=== PATIENT | female | born 1965 | race Caucasian/White ===

== ENCOUNTER 2020-12-27 23:24 | Inpatient (IN) | payer OTHER ==
[2020-12-28 00:17] LABS: Absolute Lymphocytes (CBC) 2.2 K/uL (0.7-4.9); Basophils % 0.6 % (0-1.3); Hematocrit 41.3 % (36.0-45.0); Lymphocytes % 24.6 % (15.3-44.8); MPV 8.5 fL (7.6-11.3); RBC Red Blood Cell Count 4.65 M/uL (3.86-4.86)
[2020-12-28] MEDS ORDERED: ONDANSETRON 4 MG/2 ML VIAL ONE (00:28)
[2020-12-28] MEDS ORDERED: MORPHINE 4 MG/ML SYR ONE ×2 (00:28→03:20)
[2020-12-28 00:58] LABS: ALT/SGPT 31 U/L (12-78); AST/SGOT 15 U/L (15-37); Albumin 4.2 g/dL (3.4-5.0); Alkaline Phosphatase 104 U/L (45-117); BUN Blood Urea Nitrogen 18 mg/dL (7-18); Bicarbonate 26 mmol/L (21-32); Bilirubin Direct 0.1 mg/dL (0-0.2); Bilirubin Total 0.4 mg/dL (0.2-1.0); Glucose Level 191 mg/dL (74-106); Lipase 145 U/L (73-393); Potassium 3.9 mmol/L (3.5-5.1); Protein, Total 7.2 g/dL (6.4-8.2); Sodium Level 141 mmol/L (136-145); Troponin (Emerg Dept Use Only) < 0.02 ng/mL (0.0-0.045)
[2020-12-28] MEDS ORDERED: HYDROMORPHONE HCL 1 MG/ML INJ ONE (01:01)
--- NOTE | 2020-12-28 03:18 | ER ---
Nurse's Notes [facility] Name: Sophia Payne Age: 55 yrs Sex: Female : 1965 Arrival Date: 12/27/2020 Time: 23:27 Bed 15 Private MD: Diagnosis: Other cholelithiasis without obstruction;Nausea with vomiting, unspecified;Upper abdominal pain, unspecified;Intractable pain Presentation: 12/27 23:43 Chief complaint: Patient states: Mid upper abd pain with vomiting starting around 1800. df1 Coronavirus screen: Vaccine status: Patient reports receiving the 1st dose of the Covid vaccine. Client reports previous positive COVID test result. Date of collection: December 2019. Ebola Screen: Patient negative for fever greater than or equal to 101.5 degrees Fahrenheit, and additional compatible Ebola Virus Disease symptoms Patient denies exposure to infectious person. Patient denies travel to an Ebola-affected area in the 21 days before illness onset. Initial Sepsis Screen: Does the patient meet any 2 criteria? No. Patient's initial sepsis screen is negative. Does the patient have a suspected source of infection? No. Patient's initial sepsis screen is negative. Risk Assessment: Do you want to hurt yourself or someone else? Patient reports no desire to harm self or others. Onset of symptoms was December 27, 2020 at 18:00. 23:43 Method Of Arrival: Wheelchair df1 23:43 Acuity: CITLALLI 3 df1 Triage Assessment: 23:54 General: Appears uncomfortable, ill, Behavior is calm, cooperative. Pain: Complains of df1 pain in left scapular area, right scapular area and thoracic area. Respiratory: Airway is patent Respiratory effort is even, unlabored, Respiratory pattern is regular, symmetrical. Historical: - Allergies: 23:45 No Known Allergies; df1 - Home Meds: 23:45 None [Active]; df1 - PMHx: 23:45 None; df1 - PSHx: 23:45 stomach reduction; df1 - Immunization history:: Adult Immunizations not up to date, Client reports receiving the 1st dose of the Covid vaccine. - Social history:: Smoking status: Patient denies any tobacco usage or history of. - Family history:: not pertinent. - Hospitalizations: : No recent hospitalization is reported. Screenin:54 Abuse screen: Denies threats or abuse. Nutritional screening: No deficits noted. df1 Tuberculosis screening: No symptoms or risk factors identified. Fall Risk None identified. Assessment: 12/28 00:00 General: Appears uncomfortable. Pain: Complains of pain in back and thoracic area and lh3 right scapular area and left scapular area and abdomen and epigastric area. Vital Signs: 12/27 23:43 BP 136 / 87; Pulse 59; Resp 20; Pulse Ox 100% on R/A; Weight 69.4 kg; Height 5 ft. 4 df1 in. (162.56 cm); Pain 12/17; 12/28 02:00 BP 140 / 81; Pulse 60; Resp 18; Pulse Ox 100% on R/A; lh3 03:30 BP 128 / 73; Pulse 60; Resp 18; Pulse Ox 100% on R/A; lh3 12/27 23:43 Body Mass Index 26.26 (69.40 kg, 162.56 cm) df1 ED Course: 12/27 23:27 Patient arrived in ED. ja2 23:45 Triage completed. df1 23:49 Lupe Calix, RN is Primary Nurse. lh3 23:53 Jad Baldwin MD is Attending Physician. rn 23:55 Arm band placed on right wrist. df1 23:55 Patient has correct armband on for positive identification. Placed in gown. Bed in low df1 position. Call light in reach. Side rails up X 1. 12/28 00:00 Door closed. Verbal reassurance given. Elevated. lh3 00:00 Inserted saline lock: 20 gauge in right antecubital area, using aseptic technique. lh3 Blood collected. 00:12 Basic Metabolic Panel Sent. lh3 00:12 CBC with Diff Sent. lh3 00:12 Hepatic Function Sent. lh3 00:12 Lipase Sent. lh3 00:12 Troponin (emerg Dept Use Only) Sent. lh3 00:55 US Abdomen Limited In Process Unspecified. EDMS 01:00 No provider procedures requiring assistance completed. lh3 01:25 CT Abd/Pelvis - IV Contrast Only In Process Unspecified. EDMS 02:38 Troponin (emerg Dept Use Only) Sent. lh3 03:17 Alexander Potter MD is Referral Physician. rn 03:33 IV discontinued, intact, bleeding controlled, No redness/swelling at site. Pressure lh3 dressing applied. 03:37 Primary Nurse role handed off by Lupe Calix RN bb 03:58 Vinny Greco MD is Hospitalizing Provider. rn 04:13 Lupe Calix RN is Primary Nurse. lh3 04:14 Inserted saline lock: 20 gauge in left antecubital area, using aseptic technique. lh3 Administered Medications: 00:11 Drug: morphine 4 mg Route: IVP; Site: right antecubital; lh3 01:44 Follow up: Response: No adverse reaction lh3 00:12 Drug: Zofran (Ondansetron) 4 mg Route: IVP; Site: right antecubital; lh3 01:44 Follow up: Response: No adverse reaction lh3 00:39 Drug: Dilaudid (HYDROmorphone) 1 mg {Note: RASS 0.} Route: IVP; Site: right antecubital;bb 01:44 Follow up: Response: No adverse reaction lh3 03:08 Drug: ProTONIX (pantoprazole) 40 mg Route: IVP; Site: right antecubital; mr2 03:28 Follow up: Response: No adverse reaction lh3 03:08 Drug: morphine 4 mg Route: IVP; Site: right antecubital; mr2 03:28 Follow up: Response: No adverse reaction lh3 04:14 Drug: Dilaudid (HYDROmorphone) 0.5 mg Route: IVP; Site: left antecubital; lh3 05:45 Follow up: Response: No adverse reaction; Nausea is decreased lh3 04:14 Drug: Phenergan (promethazine) 12.5 mg Route: IVP; Site: left antecubital; lh3 05:44 Follow up: Response: No adverse reaction; Pain is decreased lh3 Outcome: 03:17 Discharge ordered by MD. rn 03:33 Discharged to home ambulatory. lh3 03:33 Condition: good 03:33 Discharge instructions given to patient, family, Instructed on discharge instructions, follow up and referral plans. medication usage, Demonstrated understanding of instructions, follow-up care, medications. 03:33 Patient left the ED. lh3 03:58 Decision to Hospitalize by Provider. rn 06:56 Patient left the ED. 3 Signatures: Dispatcher [employer] EDMS Sophia Coleman RN RN bb Jad Baldwin MD MD rn Hardee, Lupe, MAUREEN RN lh3 Rin Phillips Mike, RN RN mr2 Emperatriz, Kirstin df1
--- NOTE | 2020-12-28 03:18 | EDPHYS ---
Physician Documentation [facility] Name: Sophia Payne Age: 55 yrs Sex: Female : 1965 Arrival Date: 12/27/2020 Time: 23:27 Bed 15 Private MD: ED Physician Jad Baldwin HPI: 12/28 00:14 This 55 yrs old Female presents to ER via Wheelchair with complaints of rn Abdominal pain. 00:14 The patient presents with abdominal pain in the epigastric area, in the right upper rn quadrant. Onset: The symptoms/episode began/occurred 6 hour(s) ago. The symptoms radiate to right back. Associated signs and symptoms: Pertinent positives: nausea and vomiting, Pertinent negatives: blood in stools, fever, hematuria, shortness of breath, vomiting blood. The symptoms are described as constant, sharp. Modifying factors: The symptoms are alleviated by nothing, the symptoms are aggravated by touching the area. Severity of pain: At its worst the pain was moderate in the emergency department the pain is unchanged. The patient has not experienced similar symptoms in the past. The patient has not recently seen a physician. Patient reports 6 hours of constant upper abdominal pain that radiates to the right back. Denies any trauma. No fever. Reports associated with nausea and vomiting. Reports started all of a sudden and denies any recent illness/cough/fever.. Historical: - Allergies: 12/27 23:45 No Known Allergies; df1 - Home Meds: 23:45 None [Active]; df1 - PMHx: 23:45 None; df1 - PSHx: 23:45 stomach reduction; df1 - Immunization history:: Adult Immunizations not up to date, Client reports receiving the 1st dose of the Covid vaccine. - Social history:: Smoking status: Patient denies any tobacco usage or history of. - Family history:: not pertinent. - Hospitalizations: : No recent hospitalization is reported. ROS: 12/28 00:14 Constitutional: Negative for fever, chills, and weight loss, Eyes: Negative for injury, rn pain, redness, and discharge, Neck: Negative for injury, pain, and swelling, Cardiovascular: Negative for palpitations, and edema Respiratory: Negative for shortness of breath, cough, wheezing Abdomen/GI: Negative for diarrhea, and constipation, Back: Negative for injury and pain, : Negative for injury, bleeding, discharge, and swelling, MS/Extremity: Negative for injury and deformity, Skin: Negative for injury, rash, and discoloration, Neuro: Negative for headache, weakness, numbness, tingling, and seizure. Exam: 00:14 Constitutional: This is a well developed, well nourished patient who is awake, alert, rn and appears uncomfortable Head/Face: Normocephalic, atraumatic. Eyes: Periorbital areas with no swelling, redness, or edema. Cardiovascular: Regular rate and rhythm. No pulse deficits. Respiratory: Mild tachypnea, appears in pain Abdomen/GI: Soft, tender epigastrium and right upper quadrant with guarding, no rebound Skin: Warm, dry MS/ Extremity: Pulses equal, no cyanosis. Neuro: Awake and alert, GCS 15 00:59 ECG was reviewed by the Attending Physician. rn Vital Signs: 12/27 23:43 BP 136 / 87; Pulse 59; Resp 20; Pulse Ox 100% on R/A; Weight 69.4 kg; Height 5 ft. 4 df1 in. (162.56 cm); Pain 12/17; 12/28 02:00 BP 140 / 81; Pulse 60; Resp 18; Pulse Ox 100% on R/A; lh3 03:30 BP 128 / 73; Pulse 60; Resp 18; Pulse Ox 100% on R/A; lh3 12/27 23:43 Body Mass Index 26.26 (69.40 kg, 162.56 cm) df1 MDM: 12/27 23:53 Patient medically screened. rn 12/28 02:35 Differential diagnosis: appendicitis, cholecystitis, Cholelithiasis, diverticulitis, rn gastritis, gastroesophageal reflux disease, non-specific abd pain, pancreatitis, Peptic Ulcer Disease, Perf. Duodenal Ulcer, Perf. Gastric Ulcer, Peritonitis, Pyelonephritis, Ureterolithiasis. Data reviewed: vital signs, nurses notes, lab test result(s), EKG, radiologic studies, CT scan. Data interpreted: electronic device monitor: rate is 65 beats/min, rhythm is normal sinus rhythm, regular, with no ectopy, Interpretation: normal rate, normal rhythm, Pulse oximetry: on room air is 100 %. Interpretation: normal. Counseling: I had a detailed discussion with the patient and/or guardian regarding: the historical points, exam findings, and any diagnostic results supporting the discharge/admit diagnosis, lab results, radiology results. Response to treatment: the patient's symptoms have markedly improved after treatment, and as a result, I will discharge patient. Special discussion: Based on the patient's Hx, exam, and Dx evaluation, there is no indication for emergent surgery or inpatient Tx. It is understood by the patient/guardian that if the Sx's persist or worsen they need to return immediately for re-evaluation. I discussed with the patient/guardian in detail that at this point there is no indication for admission to the hospital. It is understood, however, that if the symptoms persist or worsen the patient needs to return immediately for re-evaluation. ED course: Patient resting comfortably, CT abdomen pelvis without acute findings. Initial EKG and troponin normal. Ultrasound shows cholelithiasis with normal CBD and no signs of cholecystitis. Will repeat troponin and if repeat negative DC home with general surgery follow-up for cholelithiasis. 03:17 ED course: Repeat troponin negative. rn 03:39 ED course: Upon discharge patient states that feels like nausea is coming back and rn states that the second morphine shot did not do anything and requests that Dilaudid be given due to good response earlier in the pharmacies are not open at this time. CT abdomen and pelvis shows no acute findings. Ultrasound shows cholelithiasis with normal CBD and no wall thickening to suggest cholecystitis. Lack of acute findings and persistent nausea with pain could indicate more of a gastritis or esophagitis given abdominal pain/chest pain/back pain. Protonix given not too long ago. Will remedicate patient and DC home. Patient ambulatory and does not really seem to be in pain. Discomfort looks nothing like when she initially presented. Patient had been resting comfortably in room for some time now. Urged her to follow-up with general surgery for gallstones, GI for possible gastritis/esophagitis, and return precautions given and understood as her pain just began last night and could be too early in the continue to nut picker on imaging or blood work at this point.. 12/28 00:00 Order name: Basic Metabolic Panel; Complete Time: 01:00 rn 12/28 00:00 Order name: CBC with Diff; Complete Time: 00:33 rn 12/28 00:00 Order name: Hepatic Function; Complete Time: :00 rn 12/28 00:00 Order name: Lipase; Complete Time: 01:00 rn 12/28 00:00 Order name: Troponin (emerg Dept Use Only); Complete Time: 01:00 rn 12/28 02:35 Order name: Troponin (emerg Dept Use Only); Complete Time: 03:17 rn 12/28 00:00 Order name: US Abdomen Limited rn 12/28 00:00 Order name: CT Abd/Pelvis - IV Contrast Only rn 12/28 04:17 Order name: SARS-COV-2 RT PCR; Complete Time: 05:12 EDMS 12/28 00:00 Order name: IV Saline Lock; Complete Time: 00:12 rn 12/28 00:00 Order name: Labs collected and sent; Complete Time: 00:12 rn 12/28 00:00 Order name: EKG; Complete Time: 00: rn 12/28 00:00 Order name: EKG - Nurse/Tech; Complete Time: 01:44 rn EC:59 Rate is 76 beats/min. Rhythm is regular. Right axis deviation noted. QRS is positive in rn lead aVF and negative in lead I. FL interval is prolonged at 264 msec. QRS interval is normal. QT interval is normal. No Q waves. T waves are Normal. No ST changes noted. Clinical impression: NSR w/ Non-specific ST/T Changes. Interpreted by me. Reviewed by me. Administered Medications: 00:11 Drug: morphine 4 mg Route: IVP; Site: right antecubital; lh3 01:44 Follow up: Response: No adverse reaction lh3 00:12 Drug: Zofran (Ondansetron) 4 mg Route: IVP; Site: right antecubital; lh3 01:44 Follow up: Response: No adverse reaction lh3 00:39 Drug: Dilaudid (HYDROmorphone) 1 mg {Note: RASS 0.} Route: IVP; Site: right antecubital;bb 01:44 Follow up: Response: No adverse reaction lh3 03:08 Drug: ProTONIX (pantoprazole) 40 mg Route: IVP; Site: right antecubital; mr2 03:28 Follow up: Response: No adverse reaction lh3 03:08 Drug: morphine 4 mg Route: IVP; Site: right antecubital; mr2 03:28 Follow up: Response: No adverse reaction lh3 04:14 Drug: Dilaudid (HYDROmorphone) 0.5 mg Route: IVP; Site: left antecubital; lh3 05:45 Follow up: Response: No adverse reaction; Nausea is decreased lh3 04:14 Drug: Phenergan (promethazine) 12.5 mg Route: IVP; Site: left antecubital; lh3 05:44 Follow up: Response: No adverse reaction; Pain is decreased lh3 Disposition Summary: 12/28/20 03:58 Hospitalization Ordered Hospitalization Status: Observation rn Provider: Vinny Greco rn Location: Telemetry/MedSurg (observation)(12/28/20 03:58) rn Condition: Stable(12/28/20 03:58) rn Problem: new(12/28/20 03:58) rn Symptoms: have improved(12/28/20 03:58) rn Bed/Room Type: Standard rn Room Assignment: [facility](12/28/20 05:14) eb1 Diagnosis - Other cholelithiasis without obstruction(12/28/20 03:58) rn - Nausea with vomiting, unspecified rn - Upper abdominal pain, unspecified rn - Intractable pain rn Forms: - Medication Reconciliation Form rn - SBAR form rn Signatures: Dispatcher [employer] EDMS Sophia Coleman, RN RN Jad Lim MD MD rn Basinger, Emily, RN RN eb1 Lupe Calix, RN RN lh3 Olvin Salter, RN RN mr2 Kirstin Awan df1 Corrections: (The following items were deleted from the chart) 03:57 03:17 Home rn rn 03:57 03:17 new rn rn 03:57 03:17 have improved rn rn 03:57 03:17 Stable rn rn 03:57 03:17 Other cholelithiasis without obstruction rn rn 03:57 03:17 Abdominal pain, unspecified rn rn 04:17 03:58 CORONAVIRUS+MR.LAB.BRZ ordered. EDMS EDMS 05:14 03:58 rn eb1
[2020-12-28] MEDS ORDERED: PANTOPRAZOLE 40 MG INJ ONE (03:20)
[2020-12-28] MEDS ORDERED: PROMETHAZINE INJ 25 MG/ML AMP ONE (04:14)
[2020-12-28] MEDS ORDERED: HYDROMORPHONE HCL 0.5 MG/0.5 ML INJ ONE (04:15)
--- NOTE | 2020-12-28 04:38 | P.HP ---
Certification for Inpatient Patient admitted to: Observation With expected LOS: <2 Midnights Patient will require the following post-hospital care: None Practitioner: I am a practitioner with admitting privileges, knowledge of patient current condition, hospital course, and medical plan of care. Services: Services provided to patient in accordance with Admission requirements found in Title 42 Section 412.3 of the Code of Federal Regulations Patient History Date of Service: 12/28/20 Reason for admission: abdominal pain History of Present Illness: Ms. Payne is a 55 yo F who presents with six hours of 10/10 RUQ and epigastric abdominal and back pain. She also reports nausea and vomiting. Pain mildly improved after narcotics but patient says she does not want to leave since the pharmacy is closed and her pain may return. Denies diarrhea, fever. Abdominal CT shows cholelithiasis, no evidence of cholecystitis. - Past Medical/Surgical History Diabetic: No -: cholelithiasis -: stomach reduction -: ankle surgery - Family History Family History: Reviewed- Non-Contributory - Social History Smoking Status: Never smoker Alcohol use: Yes CD- Drugs: No Caffeine use: Yes Place of Residence: Home Review of Systems 10-point ROS is otherwise unremarkable General: Unremarkable Eyes: Unremarkable ENT: Unremarkable Respiratory: Unremarkable Cardiovascular: Unremarkable Gastrointestinal: Nausea, Vomiting, Abdominal Pain Genitourinary: Unremarkable Musculoskeletal: Back Pain Integumentary: Unremarkable Neurological: Unremarkable Physical Examination - Vital Signs Blood Pressure: 128/73 Pulse: 60 Respirations: 18 - Physical Exam General: Alert, In no apparent distress HEENT: Atraumatic, PERRLA, Mucous membr. moist/pink, EOMI, Sclerae nonicteric Neck: Supple, 2+ carotid pulse no bruit, No LAD, Without JVD or thyroid abnormality Respiratory: Clear to auscultation bilaterally, Normal air movement Cardiovascular: Regular rate/rhythm, Normal S1 S2 Gastrointestinal: Normal bowel sounds, Soft and benign, Non-distended, Tenderness Musculoskeletal: No tenderness Integumentary: No rashes Neurological: Normal speech, Normal strength at 5/5 x4 extr, Normal tone, Normal affect Lymphatics: No axilla or inguinal lymphadenopathy - Studies Laboratory Data (last 24 hrs) 12/28/20 00:00: WBC 9.00, Hgb 14.2, Hct 41.3, Plt Count 274 12/28/20 00:00: Sodium 141, Potassium 3.9, BUN 18, Creatinine 0.89, Glucose 191 H, Total Bilirubin 0.4, AST 15, ALT 31, Alkaline Phosphatase 104, Lipase 145 Assessment and Plan - Problems (Diagnosis) (1) Cholelithiasis Current Visit: Yes Status: Acute Qualifiers: Cholelithiasis location: gallbladder Cholecystitis presence: without cholecystitis Biliary obstruction: without biliary obstruction Qualified Code(s): K80.20 - Calculus of gallbladder without cholecystitis without obstruction (2) Intractable nausea and vomiting Current Visit: Yes Status: Acute (3) Abdominal pain Current Visit: Yes Status: Acute Qualifiers: Abdominal location: right upper quadrant Qualified Code(s): R10.11 - Right upper quadrant pain - Plan continue gentle IV fluid hydration and pain managment continue IV protonix, antiemetics NPO, advance diet as tolerated repeat troponin in the morning lipase and amylase pending DVT ppx Discharge Plan: Home Plan to discharge in: 24 Hours - Advance Directives Does patient have a Living Will: No Does patient have a Durable POA for Healthcare: No - Code Status/Comfort Care Code Status Assessed: Yes (full code ) Critical Care: No Time Spent Managing Pts Care (In Minutes): 70
[2020-12-28 05:39] VITALS: BMI 26.2
[2020-12-28] MEDS ORDERED: SODIUM CHLORIDE 0.9% 10ML INJ IV PRN (06:10)
[2020-12-28] MEDS ORDERED: ONDANSETRON 4 MG/2 ML VIAL IV PRN (06:10)
[2020-12-28] MEDS: NA CHLORIDE 0.9% 1,000 ML IV SCH ×2 (06:10→17:18)
[2020-12-28] MEDS ORDERED: MORPHINE 2 MG/ML SYR IV PRN (06:10)
--- NOTE | 2020-12-28 07:02 | RAD REPORT ---
EXAM DESCRIPTION: US - Abdomen Exam Limited - 12/28/2020 12:55 am CLINICAL HISTORY: Abdominal pain. COMPARISON: None. FINDINGS: The gallbladder wall is not thickened. Multiple gallstones. Borderline gallbladder disten tion. The biliary tree is normal caliber. IMPRESSION: Cholelithiasis. Borderline gallbladder distention
[2020-12-28 08:53] LABS: Albumin 3.8 g/dL (3.4-5.0); Bilirubin Total 0.6 mg/dL (0.2-1.0); Magnesium 2.1 mg/dL (1.8-2.4); Phosphorus 4.5 mg/dL (2.5-4.9); Potassium 4.6 mmol/L (3.5-5.1); Thyroid Stimulating Hormone 0.918 uIU/mL (0.360-3.740)
[2020-12-28] MEDS ORDERED: PANTOPRAZOLE 40 MG INJ IVP SCH (09:00)
[2020-12-28] MEDS: ENOXAPARIN 40 MG/0.4 ML SQ SCH (09:08)
--- NOTE | 2020-12-28 10:36 | P.DS ---
Admission Date: 12/28/20 Discharge Date: 12/29/20 Disposition: ROUTINE DISCHARGE Discharge Condition: FAIR Reason for Admission: abdominal pain - Problems (1) Acute cholecystitis Status: Acute (2) Cholelithiasis Status: Acute Qualifiers: Cholelithiasis location: gallbladder Cholecystitis presence: without c holecystitis Biliary obstruction: without biliary obstruction Qualified Code(s): K80.20 - Calculus of gallbladder without cholecystitis without ob struction (3) Hyperbilirubinemia Status: Acute Brief History of Present Illness: Ms. Payne is a 55 yo F who presented with 10/10 RUQ and epigastric abdominal and back pain of 6 hours duration,. She also reported nausea and vomiting. Denied diarrhea, fever. Abdominal CT showed cholelithiasis, no evidence of cholecystitis. Right upper quadrant sonogram also showed multiple gallstones and borderline dilated gallbladder. Patient was hospitalized for further evaluation and management. Hospital Course: Patient admitted to the medical floor. Her pain resolved. HIDA scan showed findings consistent with acute cholecystitis. General surgery consulted. Patient seen and evaluated by Dr. Ortiz who recommended lap cholecystectomy. CT abdomen and ultrasound showed no biliary tree involvement. Her bilirubin level increased. MRCP done showed normal CBD, no obstruction choledocholithiasis. Lap cholecystectomy performed. Patient tolerated the procedure. She also tolerated diet and deemed clinically stable for discharge per Dr. Ortiz. Vital Signs/Physical Exam: Temp Pulse Resp BP Pulse Ox 98.2 F 85 16 117/70 98 12/28/20 08:00 12/28/20 08:00 12/28/20 08:00 12/28/20 08:00 12/28/20 08:00 General: Alert, In no apparent distress, Oriented x3 HEENT: Mucous membr. moist/pink Neck: JVD not distended Respiratory: Clear to auscultation bilaterally, Normal air movement Cardiovascular: No edema, Regular rate/rhythm, Normal S1 S2 Gastrointestinal: Soft and benign, Non-distended Musculoskeletal: No swelling, No tenderness Integumentary: No rashes Neurological: Normal strength at 5/5 x4 extr Laboratory Data at Discharge: WBC 9.00 K/uL (4.3-10.9) 12/28/20 00:00 Hgb 14.2 g/dL (12.0-15.0) 12/28/20 00:00 Hct 41.3 % (36.0-45.0) 12/28/20 00:00 Plt Count 274 K/uL (152-406) 12/28/20 00:00 Sodium 141 mmol/L (136-145) 12/28/20 07:53 Potassium 4.6 mmol/L (3.5-5.1) 12/28/20 07:53 BUN 15 mg/dL (7-18) 12/28/20 07:53 Creatinine 0.80 mg/dL (0.55-1.3) 12/28/20 07:53 Glucose 129 mg/dL (74-106) H 12/28/20 07:53 Phosphorus 4.5 mg/dL (2.5-4.9) 12/28/20 07:53 Magnesium 2.1 mg/dL (1.8-2.4) 12/28/20 07:53 Total Bilirubin 0.6 mg/dL (0.2-1.0) 12/28/20 07:53 AST 14 U/L (15-37) L 12/28/20 07:53 ALT 39 U/L (12-78) 12/28/20 07:53 Alkaline Phosphatase 98 U/L (45-117) 12/28/20 07:53 Troponin I < 0.02 ng/mL (0.0-0.045) 12/28/20 07:53 Triglycerides 40 mg/dL (<150) 12/28/20 07:53 Cholesterol 199 mg/dL (<200) 12/28/20 07:53 HDL Cholesterol 58 mg/dL (40-60) 12/28/20 07:53 Cholesterol/HDL Ratio 3.43 12/28/20 07:53 Amylase 54 U/L (25-115) 12/28/20 07:53 Lipase 59 U/L (73-393) L 12/28/20 07:53 Home Medications: Tramadol HCl [Ultram] 50 mg PO Q6H PRN #20 tablet 12/28/20 Amox/Clavulanate [Augmentin 875-125 Tab] 875 mg PO BID #12 tab 12/29/20 New Medications: Amox/Clavulanate [Augmentin 875-125 Tab] 875 mg PO BID #12 tab Tramadol HCl [Ultram] 50 mg PO Q6H PRN #20 tablet PRN Reason: PAIN Diet: Regular Activity: Ad aneesh Followup: Alexander Ortiz MD [ACTIVE - CAN ADMIT] - 1 Week Time spent managing pt's care (in minutes): 36
--- NOTE | 2020-12-28 13:11 | RAD REPORT ---
EXAM DESCRIPTION: CT - Abdomen Pelvis W Contrast - 12/28/2020 6:16 am CLINICAL HISTORY: The patient is 55 years old and is Female; ABD PAIN TECHNIQUE: Axial computed tomography images of the abdomen and pelvis with intravenous contrast. S agittal and coronal reformatted images were created and reviewed. This CT exam was performed using one or more of the following dose reduction techniques: automated exposure control, adjustment of t he mA and/or kV according to patient size, and/or use of iterative reconstruction technique. COMPARISON: No relevant prior studies available. FINDINGS: Lung bases: Unremarkable. No mass. No consolidation. Mediastinum: Small hiatal hernia. ABDOMEN: Liver: See below. Gallbladder and bile ducts: Tiny hyperdensity in the dependent gallbladder which may represent a small gallstone. No ductal dilation. Pancreas: Unremarkable. No mass. No ductal dilation. Spleen: Unremarkable. No splenomegaly. Adrenals: Unremarkable. No mass. Kidneys and ureters: Unremarkable. No solid mass. No hydronephrosis. Stomach and bowel: Postsurgical changes in the stomach. No obstruction. No mucosal thickening. PELVIS: Appendix: No findings to suggest acute appendicitis. Bladder: Unremarkable. No mass. Reproductive: Unremarkable as visualized. ABDOMEN and PELVIS: Intraperitoneal space: Unremarkable. No free air. No significant fluid collection. Bones/joints: No acute fracture. No dislocation. Soft tissues: Unremarkable. Vasculature: Reflux of contrast into the IVC and hepatic veins. No abdominal aortic aneurysm. Lymph nodes: Unremarkable. No enlarged lymph nodes. IMPRESSION: No acute findings in the abdomen or pelvis. Electronically signed by: Toni Quispe MD 12/28/2020 2:09 AM CDT Due to temporary technical issues with the PACS/Fluency reporting system, reports are being signed by the in house radiologists without review as a courtesy to insure prompt reporting. The interpreting radiologist is fully responsible for the content of the report.
--- NOTE | 2020-12-28 14:30 | RAD REPORT ---
EXAM DESCRIPTION: NM - Hepatobiliary System Imagin - 12/28/2020 2:18 pm CLINICAL HISTORY: Cholelithiasis COMPARISON: Abdomen Pelvis W Contrast dated 12/28/2020; Abdomen Exam Limited dated 12/28/2020 TECHNIQUE: The patient was administered approximately 7 mCi Tc99m Choletec. Imaging of the right upp er quadrant was performed initially for up to 60 minutes. FINDINGS: Normal hepatic uptake and excretion with appropriate clearance of background blood pool ac tivity. Normal visualization of biliary and small bowel activity. No uptake is seen within the gallbladder. IMPRESSION: Nonvisualized gallbladder. This would suggest cystic duct obstruction and concerning for acute cholecystitis in the proper clinical setting.
--- NOTE | 2020-12-28 15:11 | P.PN ---
Date of Service: 12/28/20 Patient seen and examined. She denies any pain today. No nausea or vomiting. Patient kept NPO. HIDA scan today reported no visualization of the gallbladder which suggest acute cholecystitis versus cystic duct obstruction. General surgery-Dr. Potter consulted to evaluate. Supportive measures. Start IV antibiotics. Keep NPO per Dr. Potter. Pain management as needed.
[2020-12-28] MEDS: ACETAMINOPHEN 500 MG TAB PO PRN (17:15)
[2020-12-28] MEDS: PIPER TAZO 3.375 GM in NA CHLORIDE 0.9% 100 ML IV SCH (17:16)
[2020-12-28] MEDS: PANTOPRAZOLE 40 MG INJ IVP SCH (21:01)
[2020-12-29] MEDS: PIPER TAZO 3.375 GM in NA CHLORIDE 0.9% 100 ML IV SCH (00:58)
[2020-12-29] MEDS: NA CHLORIDE 0.9% 1,000 ML IV SCH ×2 (02:10→12:10)
[2020-12-29] MEDS: ACETAMINOPHEN 500 MG TAB PO PRN (03:24)
[2020-12-29 07:26] LABS: Albumin 3.9 g/dL (3.4-5.0); Bilirubin Total 1.6 mg/dL (0.2-1.0); Magnesium 2.2 mg/dL (1.8-2.4); Phosphorus 4.1 mg/dL (2.5-4.9); Potassium 4.1 mmol/L (3.5-5.1); Protein, Total 7.5 g/dL (6.4-8.2)
[2020-12-29] MEDS: ENOXAPARIN 40 MG/0.4 ML SQ SCH (09:00)
[2020-12-29] MEDS: PANTOPRAZOLE 40 MG INJ IVP SCH (09:07)
[2020-12-29] MEDS ORDERED: PIPER TAZO 3.375 GM in NA CHLORIDE 0.9% 100 ML IV SCH ×2 (10:00→17:00)
--- NOTE | 2020-12-29 11:08 | RAD REPORT ---
EXAM DESCRIPTION: MRI - Cholangiogram - 12/29/2020 10:12 am CLINICAL HISTORY: Mid and upper abdominal pain, vomiting, history of gastric sleeve TECHNIQUE: Axial and coronal heavily T2 weighted sequences were obtained. Coronal T2 HASTE fat satur ation static and coronal multiplane reconstruction imaging generated and reviewed. Horizontal and marcelina tical axis rotational views obtained using maximum intensity projection (MIP) protocol. FINDINGS: Ultrasound showed small layering gallstones. These are difficult to clearly define on MRCP . Heterogeneous signal within the lumen of the gallbladder could reflect development of sludge. Devel opment of gallbladder wall edema over such a short interval is unlikely. No intrahepatic or extrahepatic biliary tree dilatation. No duct stone is identifiable. No pancreatic duct abnormality seen. IMPRESSION: Normal size biliary tree. No choledocholithiasis identifiable. Patient has known small stones by sonography. Heterogeneity of the gallbladder lumen signal could ref lect sludge or thickened bile. Development of gallbladder wall edema is unlikely over such a short in terval.
[2020-12-29] MEDS ORDERED: ACETAMINOPHEN 500 MG TAB ONE (12:49)
[2020-12-29] MEDS ORDERED: CELECOXIB 100 MG CAPSULE ONE (12:49)
[2020-12-29] MEDS ORDERED: Ringers Lactate 1,000 ML IV ONE (13:58)
[2020-12-29] MEDS ORDERED: FENTANYL CITR 100 MCG/2 ML ONE (14:10)
[2020-12-29] MEDS ORDERED: propofoL 200 MG/20 ML VIAL IV ONE (14:10)
[2020-12-29] MEDS ORDERED: MIDAZOLAM HCL 2 MG/2 ML INJ ONE (14:10)
[2020-12-29] MEDS ORDERED: ROCURONIUM 50 MG/5 ML VIAL IV ONE (14:12)
[2020-12-29] MEDS ORDERED: dexAMETHasone 10 MG/ML VIAL ONE (14:44)
--- NOTE | 2020-12-29 14:49 | P.BOP ---
Preoperative diagnosis: acute cholecystitis, symptomatic cholelithiasis Postoperative diagnosis: same Primary procedure: Laparoscopic cholecystectomy Estimated blood loss: <10cc Specimen: gb Findings: as above Anesthesia: General Complications: None Transferred to: Recovery Room Condition: Good
[2020-12-29] MEDS ORDERED: ONDANSETRON 4 MG/2 ML VIAL ONE (14:51)
[2020-12-29] MEDS ORDERED: GLYCOPYRROLATE 0.2 MG/ML SYR ONE (14:51)
[2020-12-29] MEDS ORDERED: HYDROCODONE/APAP 5/325 MG TAB PO PRN (15:05)
[2020-12-29] MEDS ORDERED: Mastisol Adhesive Liq ONE (15:10)
[2020-12-29] MEDS ORDERED: NEOSTIGMINE 1 MG/ML -5 ML ONE (15:13)
[2020-12-29] MEDS ORDERED: KETOROLAC 30 MG/ML INJ ONE (15:25)
--- NOTE | 2020-12-29 16:17 | CON ---
Date of Consultation: 12/29/2020 Diagnoses: Right upper quadrant abdominal pain, acute cholecystitis, symptomatic cholelithiasis. History Of Present Illness: This is a case of a 55-year-old patient comes to us with epigastric righ t upper quadrant pain radiating to the back with nausea, vomiting, she say was very hard. She believ es she has some improvement yesterday, but then the pain got worse to the point that some of the stud ies were done and a surgical consult was obtained since the patient could not be discharged home. Sh norberto stated that before this happened, she was eating some taco salad with cheese and meat. The pain is still there in right upper quadrant and a surgical consult was obtained. Allergies: NONE. Past Surgical History: Stomach stapling, cholelithiasis, and ankle surgery. Past Medical History: None. Family History: Noncontributory. Social History: She does not smoke. She does not drink alcohol. Review of Systems: Nausea, vomiting, abdominal pain. See H and P. Ten points are otherwise unremarkable. Physical Examination: General: Patient is awake, alert. HEENT: Pupils are equal and reactive. Anicteric. Neck: Supple. Chest: Clear. Abdomen: Epigastric right upper quadrant pain with Truong sign positive. Pelvic: Deferred. Breasts: Deferred. Rectal: Deferred. Extremities: Good capillary refill. Laboratory Data: Blood work shows WBC count of 9, hemoglobin of 14.2. Potassium 4.1. Total bili of 1.6 with alkaline phos 110. Lipase 59. Abdominal ultrasound interpreted by Dr. Christensen as cholelithiasis, borderline gallbladder distention. Abdominal CT, no other acute findings. HIDA scan shows nonvisualization of the gallbladder consisten t with cystic duct obstruction or acute cholecystitis. MRCP interpreted by Dr. Villa as normal-siz ed biliary tree with no choledocholithiasis. Assessment: 55-year-old patient with acute cholecystitis, symptomatic cholelithiasis. Benefits, alt ernatives, and risks of laparoscopic possible open cholecystectomy fully explained which include, but not limited to infection, bleeding, damage to adjacent structures, anesthesia complication, choledoc holithiasis, bile leak, pancreatitis, DC, and . She also understands this may not relieve sympt oms. She might need more than one surgical intervention. She understood and signed a consent. HM/MODL Voice ID: [id number] Report ID: [id number]
[2020-12-29 16:31] VITALS: BP 107/59; TEMP 97.4
[2020-12-29 17:21] VITALS: O2SAT 97
--- NOTE | 2020-12-30 01:29 | OP ---
Surgeon: Alexander Potter MD Preoperative Diagnoses: Right upper quadrant abdominal pain, acute cholecystitis, symptomatic cholel ithiasis. Postoperative Diagnoses: Right upper quadrant abdominal pain, acute cholecystitis, symptomatic jodi lithiasis. Procedure: Laparoscopic cholecystectomy. Anesthesia: General plus local. Specimen: Gallbladder. Finding: Acute cholecystitis. Indications For Procedure: This is a case of a 55-year-old patient who came with acute abdominal dori n, find out to have the diagnosis as above. So, we offered laparoscopic, possible open cholecystecto my with benefits, alternatives, and risks including, but not limited to infection, bleeding, damage t o adjacent structures, anesthesia complication, DC, and even . She also understands this may no t relieve the symptoms. She might need more than one surgical intervention. She understood and sign ed the consent. Description Of Procedure: The patient was brought to the operating room, placed in supine position. Anesthesia was done without complication. Abdominal area was prepped and draped in usual sterile fa shion. Marcaine 0.5% was injected for local anesthetic followed by sharp incision of the skin in the infraumbilical region. Patient has a previous tummy tuck so we made an incision in the horizontal f ashion following the previous incision. Incision was carried down to fascia, which was opened under direct vision. Peritoneum was encountered, opened under direct vision. Vicryl #1 placed inside the fascia. Justino trocar was carefully introduced. Pneumoperitoneum was obtained. I placed 3 more tro cars, 5 mm each one of them, 1 epigastric area, 2 in the right upper quadrant using same technique, w hich consisted of local anesthetic, sharp incision of the skin, and introduction of the trocars under direct vision. This allowed me to put a grasper in the fundus of the gallbladder, another grasper i n the infundibulum retracting the gallbladder in the inferolateral fashion exposing the triangle of C alot and obtaining critical view. The patient has some gallbladder wall edema consistent with acute cholecystitis. We proceeded to identify the cystic duct and cystic artery and we proceeded to dissec ting circumferentially and the connection between those and the gallbladder was clearly identified. I proceeded to ligate those by using at least 3 clips proximal, 1 clip distal, ligation in middle. S dayton was done with the cystic artery. No bile leak, no bleeding. The gallbladder was removed from [facility] using Bovie cauterizer and removed from the abdominal cavity using EndoCatch through the umbilica l incision. The area was inspected once again, no bile leak, no bleeding. Gallbladder fossa was int act with no bleeding. At that moment, I proceeded to remove the trocars under direct vision, deflate d the pneumoperitoneum, closed the fascia with #1 Vicryl. Irrigated the subcutaneous tissue, closed that with 3-0 chromic and skin in a subcuticular fashion with 3-0 chromic and Steri-Strips on top. S ponge count and instrument counts correct. Patient tolerated the procedure well. Patient was sent t o recovery in stable condition. I discussed the case with the primary doctor. She may be able to go home today after dinner. If she goes home, she was advised and I talk to the to follow up i n my office in 1 week. Call for appointment at [phone]. Medications include Ultracef q.4 hours p.r.n. pain and Augmentin 875 p.o. q.12. Keep the area dry fo r 48 hours, then may shower. Keep Steri-Strip intact. Do not lift more than 20 pounds. EMMANUEL/BRAYDENL Voice ID: [id number] Report ID: [id number]
== END 2020-12-29 17:41 | disposition home or self-care (01) | DRG 419 ==
LOC: ER 23:24 → OBSVTOIN 12-28 04:17 → INTOOBSV 12-28 04:17 → OBSVTOIN 12-28 18:00
PROVIDERS: ADMIT Internal Medicine; ATTEND Internal Medicine
PROC: 0FT44ZZ Resection of Gallbladder, Percutaneous Endoscopic Approach (ICD-10-PCS; principal; 2020-12-29 11:00)
DX: K80.00 Calculus of gallbladder with acute cholecystitis without obstruction (principal); E80.6 Other disorders of bilirubin metabolism; Z79.899 Other long term (current) drug therapy; Z20.822 Contact with and (suspected) exposure to COVID-19
CPT/HCPCS: 36415; 74177; 74181; 76705; 78226; 80048; 80053; 80061; 80076; 82150; 83036; 83690; 83735; 84100; 84439; 84443; 84484; 85025; 88304; 93005; 94010; 94760; 99284; A9537; C9113; G0378; J1100; J1170; J1650; J2250; J2405; J2543; J2550; J2704; J2710; J3010; J7030; J7120; Q9967; U0003